=== PATIENT | male | born 1970 | race Hispanic/Latino ===

== ENCOUNTER → 2023-03-04 | Outpatient (CLI) | payer MEDICARE ==
[2023-03-04 16:45] LABS: CREATININE 6.8 mg/dL (0.5-1.5); POTASSIUM 4.8 mmol/L (3.5-5.1)
== END | disposition home or self-care (01) ==
LOC: LAB 13:33
PROVIDERS: ATTEND Internal Medicine Cardiovascular Disease
DX: Z01.812 Encounter for preprocedural laboratory examination (principal); I10 Essential (primary) hypertension
CPT/HCPCS: 36415; 80048

== ENCOUNTER → 2024-12-27 | Outpatient (CLI) | payer MEDICARE ==
[2024-12-27] MEDS: REGADENOSON 0.4 MG/5 ML PF SYG IVP ONE (14:23)
--- NOTE | 2024-12-27 18:01 | HMCSR ---
APPROVED REPORT Height: 5 ft 8in Weight: 225 lbs TEST INDICATIONS Dyspnea , R01.1 Cardiac Murmur The imaging protocol used to acquire images was Rest Tc-99m/stress Tc-99m 1 day Consent: The procedure was explained and understood by the patient. Informerd consent was witnessed Aditi Aden RN First, low dose rest was performed then high dose stress. RESTING DATA: The resting ekg shows: NSR Old infeiror [place] Rest SPECT myocardial perfusion imaging was performed in supine position 56 minutes following the int ravenous injection of 11.8 mCi of Tc-99 Sestamibi. Time of rest injection: 08:40: Date: 12/27/2024 Time of rest imagin:36: Date: 12/27/2024 PHARMACOLOGIC STRESS: Pharmacologic stress test was performed by injecting regadenoson 0.4 mg IV push followed by the intra venous injection of 32.0 mCi of Tc-99 Sestamibi. Time of stress injection: 10:00: Date: 12/27/2024 Time of stress imagin:31: Date: 12/27/2024 Heart Rate at time of stress injection: 83 bpm. Gated Stress SPECT was performed 91 minutes after stress injection. The images were gated to evaluate regional wall motion and calculate left ventricular ejection fracti on. STRESS DETAILS Reason for Termination: Infusion complete Stress Symptoms: No chest pain or symptoms Max HR Achieved: 85 bpm % of APMHR Achieved: 51 Max Blood Pressure: 136/78 mmHg Stress ECG: NSR Conclusion Large inferior, apical and lateral infarct No ischemia LV ejection fraction 22% Inferior akinesis Severely dilated LV at rest and stress No increased lung uptake
== END | disposition home or self-care (01) ==
LOC: SHCH 08:00
PROVIDERS: ATTEND Internal Medicine Cardiovascular Disease
DX: I25.10 Atherosclerotic heart disease of native coronary artery without angina pectoris (principal); I21.9 Acute myocardial infarction, unspecified; R06.09 Other forms of dyspnea; R01.1 Cardiac murmur, unspecified
CPT/HCPCS: 78452; 93017; J2785; A9500 ×2